=== PATIENT | female | born 1940 | race Caucasian/White ===

== ENCOUNTER 2017-12-31 11:14 | Outpatient (CLI) | payer MEDICARE ==
[2017-12-31 12:28] LABS: PTT 30.1 SEC (22.9-36.1); Prothrombin Time 13.4 SEC (12.0-14.7)
[2017-12-31 12:30] LABS: #Basophils 0.1 thou/uL (0.0-0.2); #Eosinphils 0.1 thou/uL (0.0-0.7); #Lymphocytes 2.7 thou/uL (1.20-3.40); #Monocytes 0.5 thou/uL (0.11-0.59); #Neutrophils 5.3 thou/uL (1.40-6.50); %Basophils 0.6 % (0.0-1.0); %Eosinophils 1.3 % (0.0-10.0); %Lymphocytes 31.2 % (21.0-51.0); %Monocytes 5.9 % (0.0-10.0); %Neutrophils 60.9 % (42.0-75.0); Mean Corpuscular HGB CONC 32.2 g/dL (32.0-36.0); Mean Corpuscular Hemoglobin 31.8 pg (27.0-31.0); Mean Corpuscular Volume 98.9 fL (78.0-98.0); Mean Platelet Volume 6.8 fL (7.4-10.4); Platelet Count 280 thou/uL (130-400); RBC Distribution Width 12.7 % (11.5-14.5); Red Blood Cell (RBC) Count 4.08 mill/uL (4.20-5.40); White Blood Cell (WBC) Count 8.7 thou/uL (4.8-10.8)
[2017-12-31 12:42] LABS: ALT (SGPT) 14 U/L (8-55); AST (SGOT) 18 U/L (5-34); Albumin 4.1 g/dL (3.4-4.8); Alkaline Phosphatase 74 U/L (40-150); Anion Gap 12 mmol/L (10-20); BUN (Urea Nitrogen) 6 mg/dL (9.8-20.1); Bilirubin, Total 0.3 mg/dL (0.2-1.2); Calc. Creatinine Clearance 0 mL/min (70-130); Calcium 9.4 mg/dL (7.8-10.44); Carbon Dioxide 26 mmol/L (23-31); Chloride 106 mmol/L (98-107); Estimated GFR-MDRD Greater than 90; Globulin 2.7 g/dL (2.4-3.5); Glucose 72 mg/dL (83-110); Potassium 4.1 mmol/L (3.5-5.1); Protein, Total 6.8 g/dL (6.0-8.3); Sodium 140 mmol/L (136-145)
== END 2017-12-31 11:15 | disposition home or self-care (01) ==
LOC: LABBT 11:14
PROVIDERS: ATTEND Internal Medicine Cardiovascular Disease
DX: Z01.818 Encounter for other preprocedural examination (principal); I35.1 Nonrheumatic aortic (valve) insufficiency
CPT/HCPCS: 80053; 85025; 85610; 85730; 93005; 93010

== ENCOUNTER 2018-01-07 05:37 | Day surgery (SDC) | payer MEDICARE ==
[2017-12-31 11:21] VITALS: BMI 25.4
[2018-01-07] MEDS ORDERED: Lidocaine 1% (PF) 30 ML VIAL ONE (06:31)
[2018-01-07] MEDS ORDERED: Heparin 10,000 UNITS/1 ML VIAL ONE (07:06)
[2018-01-07] MEDS ORDERED: Verapamil 5 MG/2 ML VIAL ONE (07:06)
[2018-01-07] MEDS ORDERED: Nitroglycerin 100MG/250ML BOT 250 ML ONE (07:07)
[2018-01-07] MEDS ORDERED: Midazolam HCl 2 mg/2 ml Vial ONE (08:19)
[2018-01-07] MEDS ORDERED: Iopamidol 370 76% 100 ML VIAL ONE (09:57)
--- NOTE | 2018-01-07 17:48 | DIS ---
DATE OF ADMISSION: 01/07/2018 DATE OF DISCHARGE: 01/07/2018 HISTORY OF PRESENT ILLNESS: A 77-year-old female who needs to undergo surgical procedure for either a knee replacement or lower back surgery, but most likely was planned for a knee replacement. She wa s seen in the office. She has had no complaints of chest pain or shortness of breath, but was found to have [id number] aortic valve stenosis and was advised to undergo cardiac catheterization t o determine the true gradient across the aortic valve prior to proceeding with surgery and also to ev aluate the coronary arteries. She was taken to the cardiac civil laboratory technician where she underwent the procedur e today. PAST MEDICAL HISTORY: Significant for diabetes, hypertension and aortic valve stenosis. ALLERGIES: None. MEDICATIONS: Include metformin, tramadol, oxybutynin, primidone, lovastatin, cyclobenzaprine and met oprolol. None of these have been changed. She will continue on the same medications. ALLERGIES: She is allergic to PENICILLIN, SULFA, ANTIBIOTICS and also CODEINE and SULFONAMIDES. PROCEDURES IN THE HOSPITAL: Included cardiac catheterization, left ventriculogram and coronary arter iography. She will follow up with me in about 1 month in the office. She will be able to proceed wi th her surgery without any significant complications. We will need to be sure to watch her blood pre ssure in order not to let her become too hypotensive. HOSPITAL COURSE: This is a very pleasant lady, 77 years old, with the above noted diagnosis of hyper tension, diabetes, hypercholesterolemia and a history of aortic valve stenosis with a normal ejection fraction by echocardiogram, was advised to undergo cardiac catheterization, which was performed toda y. She was found to have essentially normal coronary artery, only minimal plaque formation was noted in the first diagonal branch and also in the mid left anterior descending artery, but no flow-limiti ng disease. She has normal sized arteries, actually somewhat larger arteries for a woman. She was n oted on the cardiac catheterization to have mitral annular calcifications. The gradient across the a ortic valve was approximately 30 mmHg, which is not compatible with severe aortic valve stenosis. Sh e should be stable to undergo her procedure either knee surgery, back surgery or whatever is performe d with general anesthesia and there should not be any problems. I do not expect any complications. We would be more than happy to continue to follow the patient with you should she need help while she is in the hospital. She had radial artery approach and should be ready to be discharged home in the next 2-3 hours.
--- NOTE | 2018-01-08 08:17 | ADD-DIS ---
ADDENDUM She was given 2 mg of IV Versed during the procedure and throughout the procedure she was monitored b y an independent observer present for heart rate, blood pressure, O2 saturation and these all remaine d stable. There were no difficulties or complications during her procedure. Once she is fully awake , she can be discharged home.
== END 2018-01-07 12:30 | disposition home or self-care (01) ==
LOC: CCL 05:37 → EEVIPCON 11:30 → CCL 12:30
PROVIDERS: ATTEND Internal Medicine Cardiovascular Disease
PROC: 4A023N7 Measurement of Cardiac Sampling and Pressure, Left Heart, Percutaneous Approach (ICD-10-PCS; principal; 2018-01-07)
PROC: B2111ZZ Fluoroscopy of Multiple Coronary Arteries using Low Osmolar Contrast (ICD-10-PCS; 2018-01-07)
DX: I35.0 Nonrheumatic aortic (valve) stenosis (principal); M54.32 Sciatica, left side; E78.00 Pure hypercholesterolemia, unspecified; I10 Essential (primary) hypertension; E78.5 Hyperlipidemia, unspecified; E11.9 Type 2 diabetes mellitus without complications; Z79.82 Long term (current) use of aspirin; Z79.84 Long term (current) use of oral hypoglycemic drugs; Z79.899 Other long term (current) drug therapy; Z88.0 Allergy status to penicillin; Z88.2 Allergy status to sulfonamides; Z88.5 Allergy status to narcotic agent
CPT/HCPCS: 82962; 93458; C1769; 36416; 99152; J1644; J2001; J2250